=== PATIENT | female | born 1955 | race African-American/Black ===

== ENCOUNTER 2021-12-06 15:19 | Emergency (ER) | payer OTHER ==
[~2021-12-06] VITALS: Ht 154.9 cm; Wt 54.5 kg
[2021-12-06 15:30] VITALS: BP 159/91
[2021-12-06] MEDS ORDERED: AMOX-277 PO (19:13)
[2021-12-06] MEDS ORDERED: ACET-1158 PO (19:13)
== END 2021-12-06 20:36 | disposition home or self-care (01) ==
LOC: ER 15:19
DX: U07.1 COVID-19 (principal); J06.9 Acute upper respiratory infection, unspecified
CPT/HCPCS: 36415; 71045; 87426